=== PATIENT | male | born 1960 | race Caucasian/White ===

== ENCOUNTER 2016-11-17 21:17 | Emergency (ER) | payer OTHER | END 2016-11-17 23:20 | disposition home or self-care (01) | LOC: FER 21:17 | DX: S81.812A Laceration without foreign body, left lower leg, initial encounter (principal); N40.0 Benign prostatic hyperplasia without lower urinary tract symptoms; F17.210 Nicotine dependence, cigarettes, uncomplicated | CPT/HCPCS: 99283 ==

== ENCOUNTER 2021-07-16 08:50 | Emergency (ER) | payer OTHER ==
[2021-07-16 10:37] LABS: BILIRUBIN NEGATIVE (NEGATIVE); BLOOD TRACE-INTACT Ery/uL (NEGATIVE); CLARITY HAZY (CLEAR); COLOR YELLOW (YELLOW); GLUCOSE (U) NORMAL (NORMAL); LEUKOCYTES NEGATIVE Leu/uL (NEGATIVE); NITRITE NEGATIVE (NEGATIVE); PROTEIN NEGATIVE (NEGATIVE); UROBILINOGEN 0.2 mg/dL (0.2-1.0)
[2021-07-16 10:48] LABS: URINARY RBC RARE; URINARY WBC RARE
[2021-07-16 10:49] LABS: SQUAMOUS EPITHELIAL CELLS RARE
== END 2021-07-16 11:24 | disposition home or self-care (01) ==
LOC: FER 08:50
PROVIDERS: Emergency Medicine
DX: N40.1 Benign prostatic hyperplasia with lower urinary tract symptoms (principal); R33.8 Other retention of urine; R39.11 Hesitancy of micturition; F17.210 Nicotine dependence, cigarettes, uncomplicated
CPT/HCPCS: 81001; 99283